=== PATIENT | female | born 2005 | race Caucasian/White ===

== ENCOUNTER → 2024-08-15 08:39 | Outpatient (REF) | payer BC, SELFPAY | LOC: MRI 3T 08:39 | PROVIDERS: ATTENDING PHYSICIAN Nurse Practitioner Family; FAMILY PHYSICIAN Nurse Practitioner Family | DX: G43.719 Chronic migraine without aura, intractable, without status migrainosus (principal); G93.5 Compression of brain | CPT/HCPCS: 70551 ==

== ENCOUNTER 2024-10-20 06:06 | Day surgery (SDC) | payer BC, SELFPAY ==
[2024-10-20] VITALS (9 sets, daily range): BP systolic 110–120; BP diastolic 62–80; BMI 31.1
[2024-10-20] MEDS: NORMOSOL-R/PLASMALYTE-A 1000 IV (06:42)
== END 2024-10-20 09:48 | disposition home or self-care (01) ==
LOC: SDS 06:06
PROVIDERS: ATTENDING PHYSICIAN Otolaryngology
DX: J03.91 Acute recurrent tonsillitis, unspecified (principal)
CPT/HCPCS: 42826; 88304